=== PATIENT | male | born 1970 | race Caucasian/White ===

== ENCOUNTER → 2019-05-04 | Outpatient (CLI) | payer MEDICAID ==
[~2019-05-04] VITALS: Ht 182.9 cm; Wt 102.1 kg
[~2019-05-04] MED LIST: IOHEXOL 350 MG/ML 100ML IJ ONE; METOPROLOL TARTRATE 1MG/1ML-5ML VIAL IV ONE; METOPROLOL TARTRATE 1MG/1ML-5ML VIAL IV SCH; NITROGLYCERIN 0.4 MG SL TAB SL ONE; NITROGLYCERIN 0.4 MG SL TAB SL PRN
== END | disposition home or self-care (01) ==
LOC: CT 10:19
PROVIDERS: ATTEND Specialist
DX: R07.9 Chest pain, unspecified (principal); R06.02 Shortness of breath
CPT/HCPCS: 75571; 75574; Q9967